=== PATIENT | male | born 1950 | race Caucasian/White ===

== ENCOUNTER 2021-09-06 11:13 | Day surgery (SDC) | payer MEDICARE, BC ==
[~2021-09-06] VITALS: Ht 188 cm; Wt 103.5 kg
[~2021-09-06 11:13] MED LIST: ASCO500C18 PO; ATOR20TA PO; CHOL10002 PO; HYDR-4353 PO; LACT1CAP65 PO; LISI1TAB51 PO; MARIJUANA PO; MULT-620 PO; PANT-47 PO; SAW450CA7 PO; VITA1TAB20 PO; [UNRECOGNIZED DRUG - OTHER] PO
[2021-09-06 11:30] VITALS: BP 190/96
[2021-09-06] MEDS ORDERED: [UNRECOGNIZED DRUG - CODE] (12:20)
[2021-09-06] MEDS ORDERED: DICY10CA88 PO (12:20)
[2021-09-06] MEDS ORDERED: ALPR-624 PO (12:20)
[2021-09-06] MEDS ORDERED: FLO0.4C PO (12:20)
[2021-09-06 14:00] VITALS: BP 158/95
== END 2021-09-06 14:20 | disposition home or self-care (01) ==
LOC: SSTAY O 11:13
PROVIDERS: ATTEND Radiology Vascular & Interventional Radiology
DX: Z45.2 Encounter for adjustment and management of vascular access device (principal); C34.12 Malignant neoplasm of upper lobe, left bronchus or lung
CPT/HCPCS: 36590